=== PATIENT | male | born 1990 | race Caucasian/White ===

== ENCOUNTER 2020-04-07 09:24 | Inpatient (IN) | payer OTHER ==
[~2020-04-07] VITALS: Ht 177.8 cm; Wt 81.8 kg
[2020-04-07 10:41] LABS: BASOPHILS % (AUTO) 0.3 % (0.0-2.0); EOSINOPHILS % (AUTO) 0 % (1.0-6.0); HEMATOCRIT 41.6 % (41-53); HEMOGLOBIN 14.1 g/dL (13.5-17.5); LYMPHOCYTES # (AUTO) 1.4 K/uL (1.0-4.8); LYMPHOCYTES % (AUTO) 12.6 % (22.0-44.0); MEAN CORPUSCULAR HEMOGLOBIN 27.7 pg (26.0-34.0); MEAN CORPUSCULAR HGB CONC 33.8 G/dL (31.0-37.0); MEAN CORPUSCULAR VOLUME 82 fL (80-100); MONOCYTES # (AUTO) 0.4 K/uL (0.1-1.0); MONOCYTES % (AUTO) 3.4 % (2.0-9.0); NEUTROPHILS # (AUTO) 9.3 K/uL (1.8-7.7); NEUTROPHILS % (AUTO) 83.7 % (40.0-70.0); PLATELET COUNT (AUTO) 289 K/uL (150-450); RED BLOOD CELL COUNT(AUTO) 5.09 MIL/uL (4.50-5.90); RED CELL DISTRIBUTION WIDTH 13.9 % (11.5-14.5)
[2020-04-07 10:57] LABS: ANION GAP 6 mmol/L (8-16); CALCIUM, TOTAL 9.3 mg/dL (8.8-10.5); CARBON DIOXIDE 28 mmol/L (22-29); CHLORIDE 104 mmol/L (98-107); CREATININE 1.06 mg/dL (0.60-1.30); GLOMERULAR FILTR. RATE CALC > 60 mL/min (>60); GLUCOSE,RANDOM 104 mg/dL (70-110); POTASSIUM 3.6 mmol/L (3.5-5.1); SODIUM SERUM 138 mmol/L (136-145); UREA NITROGEN, BLOOD 11 mg/dL (7-18)
[2020-04-07 11:03] LABS: ALANINE AMINOTRANSFERASE 24 U/L (12-78); ALBUMIN 4.2 g/dL (3.4-5.0); ALKALINE PHOSPHATASE 110 U/L (46-116); ASPARTATE AMINOTRANSFERASE 13 U/L (15-37); BILIRUBIN,TOTAL 0.5 mg/dL (0.1-1.0); TOTAL PROTEIN, SERUM 7.6 g/dL (6.4-8.2)
[2020-04-07 13:24] LABS: COVID AG,FIA SOURCE NASOPHARYNGEAL
[2020-04-07 14:08] VITALS: BP 127/78
[2020-04-07] MEDS ORDERED: INFLUENZA VIRUS VACCINE QVS 2020-21 (6MO+)/PF 60 MCG/0.5 ML SYRINGE IM ONE (14:15)
[2020-04-07] MEDS ORDERED: DICYCLOMINE HCL 10 MG CAPSULE PO PRN (17:15)
[2020-04-07] MEDS ORDERED: METOCLOPRAMIDE HCL 5 MG/ML 2 ML VIAL IVP PRN (17:15)
[2020-04-07] MEDS ORDERED: LORazepam 2 MG/ML VIAL IVP PRN (17:15)
[2020-04-07] MEDS ORDERED: SODIUM CHLORIDE 0.9% 1,000 ML IV ONE (17:15)
[2020-04-07] MEDS ORDERED: ACETAMINOPHEN/CODEINE 300-15 MG TABLET PO PRN (17:15)
[2020-04-07] MEDS ORDERED: LOPERAMIDE HCL 2 MG CAPSULE PO PRN (17:15)
[2020-04-07] MEDS: TEMAZEPAM 15 MG CAPSULE PO SCH (20:33)
[2020-04-07 20:55] VITALS: BP 127/70
[2020-04-08 00:30] VITALS: BP 125/64
[2020-04-08 05:45] VITALS: BP 118/77
[2020-04-08] MEDS ORDERED: TraZODone HCL 50 MG TABLET PO PRN (17:00)
[2020-04-08 20:12] VITALS: BP 122/70
[2020-04-08] MEDS: TEMAZEPAM 15 MG CAPSULE PO SCH (21:14)
[2020-04-08] MEDS ORDERED: SODIUM CHLORIDE 0.9% 1,000 ML ONE (22:50)
[2020-04-09] VITALS: BP 120/59
[2020-04-09 03:53] VITALS: BP 127/68
[2020-04-09 07:23] VITALS: BP 122/69
[2020-04-09] MEDS ORDERED: TEMA15CA PO (11:46)
== END 2020-04-09 14:00 | DRG 897 ==
LOC: EMS 09:28 → 6S 14:57
PROVIDERS: ADMIT Internal Medicine; ATTEND Internal Medicine
DX: F11.23 Opioid dependence with withdrawal (principal); F32.1 Major depressive disorder, single episode, moderate; D72.829 Elevated white blood cell count, unspecified; G47.9 Sleep disorder, unspecified; Z20.822 Contact with and (suspected) exposure to COVID-19
CPT/HCPCS: 87426; J2060; J7030